=== PATIENT | female | born 1945 | race Caucasian/White ===

== ENCOUNTER 2018-11-30 11:43 | Outpatient (REF) | payer MEDICARE, BC, SELFPAY ==
[2018-11-30 21:32] LABS: TSH 0.08 uIU/mL (0.358-3.74)
== END 2018-11-30 12:03 ==
LOC: NCHCN 11:43
PROVIDERS: PCP Family Medicine; Visit Provider Family Medicine
DX: E03.9 Hypothyroidism, unspecified (principal)
CPT/HCPCS: 84443

== ENCOUNTER 2019-01-26 10:25 | Outpatient (REF) | payer MEDICARE, BC, SELFPAY ==
[2019-01-26 22:53] LABS: Abs Immature Grans 0.01 k/cumm (0.0-0.09); Absolute Basophil Count 0.02 k/cumm (0.0-0.2); Absolute Eosinophil Count 0.15 k/cumm (0.0-0.7); Absolute Lymphocyte Count 2.11 k/cumm (1.2-3.4); Absolute Neutrophil Count 2.52 k/cumm (1.2-6.7); Basophils % 0.4; Eosinophils % 2.8; HCT 38.3 % (36.0-46.0); HGB 12.7 g/dL (12.0-15.5); Immature Grans % 0.2; Lymphocytes % 39.7; Mean Corp. HGB Concentration 33.2 g/dL (32.0-36.0); Mean Corpuscular Hemoglobin 31.1 pg (27.0-33.0); Mean Corpuscular Volume 93.6 fL (80-95); Mean Platelet Volume 9.9 fL (8.0-11.0); Monocytes % 9.4; Neutrophils % 47.5; Platelet Count 246 x1000/uL (130-400); RBC 4.09 m/cumm (4.00-5.20); RBC Distribution Width 15.8 % (11.7-14.6); White Blood Cell Count 5.31 k/cumm (4.4-10.8)
[2019-01-26 23:11] LABS: Anion Gap 11.4 mmol/L (3-11); BUN 12 mg/dL (7-18); CO2 24.6 mmol/L (21.0-32.0); CREATININE 0.85 mg/dL (0.55-1.02); Calcium 8.6 mg/dL (8.5-10.1); Calculated LDL 150 mg/dL; Chloride 106 mmol/L (98-107); Cholesterol 249 mg/dL (50-200); Glucose 80 mg/dL (70-100); HDL Cholesterol 89 mg/dL (40-60); Potassium 4.1 mmol/L (3.5-5.1); Sodium 142 mmol/L (136-145); Triglyceride 50 mg/dL (30-150)
[2019-01-26 23:32] LABS: TSH (W/Ref FT4) 4.13 uIU/mL (0.36-3.74)
[2019-01-27] LABS: FREE T4 0.99 ng/dL (0.76-1.46)
== END 2019-01-26 10:45 ==
LOC: NCHCN 10:25
PROVIDERS: PCP Family Medicine; Visit Provider Family Medicine
DX: E03.9 Hypothyroidism, unspecified (principal); D72.819 Decreased white blood cell count, unspecified; Z13.6 Encounter for screening for cardiovascular disorders
CPT/HCPCS: 80048; 80061; 83721; 84439; 84443; 85025

== ENCOUNTER 2019-06-03 14:21 | Outpatient (REF) | payer MEDICARE, BC, SELFPAY ==
[2019-06-03 20:27] LABS: Abs Immature Grans 0.01 k/cumm (0.0-0.09); Absolute Basophil Count 0.02 k/cumm (0.0-0.2); Absolute Eosinophil Count 0.06 k/cumm (0.0-0.7); Absolute Lymphocyte Count 2.51 k/cumm (1.2-3.4); Absolute Neutrophil Count 3.37 k/cumm (1.2-6.7); Basophils % 0.3; Eosinophils % 0.9; HCT 39.3 % (36.0-46.0); HGB 13.2 g/dL (12.0-15.5); Immature Grans % 0.2; Lymphocytes % 38.2; Mean Corp. HGB Concentration 33.6 g/dL (32.0-36.0); Mean Corpuscular Hemoglobin 30.9 pg (27.0-33.0); Mean Platelet Volume 9.5 fL (8.0-11.0); Monocytes % 9.1; Neutrophils % 51.3; Platelet Count 292 x1000/uL (130-400); RBC 4.27 m/cumm (4.00-5.20); RBC Distribution Width 14.4 % (11.7-14.6); White Blood Cell Count 6.57 k/cumm (4.4-10.8)
[2019-06-03 20:35] LABS: ALT 19 U/L (14-59); AST 21 U/L (15-37); Albumin 4.1 g/dL (3.4-5.0); Alkaline Phosphatase 69 U/L (46-116); Anion Gap 11.2 mmol/L (3-11); BUN 7 mg/dL (7-18); Bilirubin, Total 0.8 mg/dL (0.2-1.0); CO2 26.8 mmol/L (21.0-32.0); CREATININE 0.94 mg/dL (0.55-1.02); Calcium 9.4 mg/dL (8.5-10.1); Chloride 104 mmol/L (98-107); Glucose 93 mg/dL (74-106); Lipase 86 U/L (73-393); Potassium 3.7 mmol/L (3.5-5.1); Sodium 142 mmol/L (136-145); Total Protein 7.8 g/dL (6.4-8.2)
== END 2019-06-03 14:41 ==
LOC: NCHCN 14:21
PROVIDERS: PCP Family Medicine; Visit Provider Family Medicine
DX: R10.9 Unspecified abdominal pain (principal)
CPT/HCPCS: 80053; 83690; 85025

== ENCOUNTER 2020-03-09 11:34 | Outpatient (REF) | payer MEDICARE, BC, SELFPAY ==
[2020-03-09 22:09] LABS: Anion Gap 5.9 mmol/L (3-11); BUN 15 mg/dL (7-18); CO2 27.1 mmol/L (21.0-32.0); CREATININE 0.85 mg/dL (0.55-1.02); Calcium 8.8 mg/dL (8.5-10.1); Calculated LDL 155 mg/dL (<100); Chloride 107 mmol/L (98-107); Cholesterol 254 mg/dL (<200); Glucose 88 mg/dL (74-106); HDL Cholesterol 85 mg/dL (40-60); Potassium 4.2 mmol/L (3.5-5.1); Sodium 140 mmol/L (136-145); TSH 0.42 uIU/mL (0.36-3.74); Triglyceride 71 mg/dL (<150)
== END 2020-03-09 11:54 ==
LOC: NCHCN 11:34
PROVIDERS: PCP Family Medicine; Visit Provider Family Medicine
DX: E03.9 Hypothyroidism, unspecified (principal); E78.5 Hyperlipidemia, unspecified
CPT/HCPCS: 80048; 80061; 84443

== ENCOUNTER 2020-06-05 10:58 | Outpatient (REF) | payer MEDICARE, BC, SELFPAY ==
[2020-06-05 22:26] LABS: ALT 15 U/L (14-59); AST 19 U/L (15-37); Albumin 4.1 g/dL (3.4-5.0); Alkaline Phosphatase 76 U/L (46-116); Bilirubin, Total 0.7 mg/dL (0.2-1.0); Calculated LDL 92 mg/dL (<100); Cholesterol 204 mg/dL (<200); HDL Cholesterol 98 mg/dL (40-60); Total Protein 7.7 g/dL (6.4-8.2); Triglyceride 70 mg/dL (<150)
[2020-06-05 22:58] LABS: Bilirubin, Direct 0.18 mg/dL (0.00-0.20)
== END 2020-06-05 11:18 ==
LOC: NCHCN 10:58
PROVIDERS: PCP Family Medicine; Visit Provider Family Medicine
DX: E78.5 Hyperlipidemia, unspecified (principal)
CPT/HCPCS: 80061; 80076

== ENCOUNTER 2021-03-12 14:49 | Outpatient (REF) | payer MEDICARE, BC, SELFPAY ==
[2021-03-12 17:00] LABS: ALT 22 U/L (14-59); AST 22 U/L (15-37); Alkaline Phosphatase 76 U/L (46-116); BUN 11 mg/dL (7-18); Bilirubin, Total 0.6 mg/dL (0.2-1.0); Calculated LDL 88 mg/dL (<100); Chloride 107 mmol/L (98-107); Cholesterol 188 mg/dL (<200); Estimated GFR 54.35 (mL/min/1.73m2); Glucose 84 mg/dL (74-106); HDL Cholesterol 89 mg/dL (40-60); Sodium 142 mmol/L (136-145); TSH 0.63 uIU/mL (0.36-3.74); Total Protein 7.3 g/dL (6.4-8.2); Triglyceride 58 mg/dL (<150)
== END 2021-03-12 14:50 | disposition home or self-care (01) ==
LOC: NCHCN 14:49
PROVIDERS: PCP Family Medicine; Visit Provider Family Medicine
DX: E03.9 Hypothyroidism, unspecified (principal); E78.5 Hyperlipidemia, unspecified; Z00.00 Encounter for general adult medical examination without abnormal findings
CPT/HCPCS: 80053; 80061; 84443

== ENCOUNTER 2022-06-06 12:48 | Outpatient (REF) | payer MEDICARE, SELFPAY ==
[2022-06-06 16:37] LABS: ALT 16 U/L (14-59); AST 27 U/L (15-37); Albumin 3.8 g/dL (3.4-5.0); Alkaline Phosphatase 76 U/L (46-116); Anion Gap 4.9 mmol/L (3-11); BUN 13 mg/dL (7-18); Bilirubin, Total 0.5 mg/dL (0.2-1.0); CO2 29.1 mmol/L (21.0-32.0); CREATININE 0.9 mg/dL (0.55-1.02); Calcium 8.9 mg/dL (8.5-10.1); Calculated LDL 106 mg/dL (<100); Chloride 107 mmol/L (98-107); Cholesterol 219 mg/dL (<200); Estimated GFR 67.08 (mL/min/1.73m2); Glucose 93 mg/dL (74-106); HDL Cholesterol 103 mg/dL (40-60); Potassium 4.1 mmol/L (3.5-5.1); Sodium 141 mmol/L (136-145); TSH (W/Ref FT4) 0.89 uIU/mL (0.36-3.74); Total Protein 7.6 g/dL (6.4-8.2); Triglyceride 53 mg/dL (<150)
== END 2022-06-06 12:49 | disposition home or self-care (01) ==
LOC: NCHCN 12:48
PROVIDERS: PCP Family Medicine; Visit Provider Family Medicine
DX: E78.5 Hyperlipidemia, unspecified (principal); E03.9 Hypothyroidism, unspecified; Z00.00 Encounter for general adult medical examination without abnormal findings
CPT/HCPCS: 80053; 80061; 84443

== ENCOUNTER 2023-07-07 17:29 | Outpatient (REF) | payer MEDICARE, BC, SELFPAY ==
[2023-07-07 15:41] LABS: ALT 16 U/L (14-59); AST 21 U/L (15-37); Albumin 3.7 g/dL (3.4-5.0); Alkaline Phosphatase 70 U/L (46-116); Anion Gap 7.7 mmol/L (3-11); BUN 17 mg/dL (7-18); Bilirubin, Total 0.7 mg/dL (0.2-1.0); CO2 26.3 mmol/L (21.0-32.0); Calculated LDL 123 mg/dL (<100); Chloride 106 mmol/L (98-107); Cholesterol 234 mg/dL (<200); Estimated GFR 58.75 (mL/min/1.73m2); Glucose 97 mg/dL (74-106); HDL Cholesterol 97 mg/dL (40-60); Potassium 3.9 mmol/L (3.5-5.1); Sodium 140 mmol/L (136-145); TSH 2.74 uIU/mL (0.36-3.74); Total Protein 7.7 g/dL (6.4-8.2); Triglyceride 74 mg/dL (<150)
== END 2023-07-07 17:30 | disposition home or self-care (01) ==
LOC: NCHCN 17:29
PROVIDERS: PCP Family Medicine; Visit Provider Family Medicine
DX: E03.9 Hypothyroidism, unspecified (principal)
CPT/HCPCS: 80053; 80061; 84443

== ENCOUNTER 2024-07-08 11:10 | Outpatient (REF) | payer MEDICARE, BC, SELFPAY ==
[2024-07-08 15:14] LABS: ALT 16 U/L (14-59); AST 22 U/L (15-37); Albumin 3.9 g/dL (3.4-5.0); Alkaline Phosphatase 94 U/L (46-116); Anion Gap 7.1 mmol/L (3-11); BUN 14 mg/dL (7-18); Bilirubin, Total 0.61 mg/dL (0.2-1.0); CO2 27.9 mmol/L (21.0-32.0); CREATININE 1.1 mg/dL (0.55-1.02); Calcium 9.6 mg/dL (8.5-10.1); Calculated LDL 122 mg/dL (<100); Chloride 106 mmol/L (98-107); Cholesterol 238 mg/dL (<200); Estimated GFR 52.08 (mL/min/1.73m2); Glucose 94 mg/dL (74-106); HDL Cholesterol 102 mg/dL (40-60); Sodium 141 mmol/L (136-145); Total Protein 8.1 g/dL (6.4-8.2); Triglyceride 70 mg/dL (<150)
[2024-07-08 16:17] LABS: TSH 1.92 uIU/mL (0.36-3.74)
== END 2024-07-08 11:11 | disposition home or self-care (01) ==
LOC: NCHCN 11:10
PROVIDERS: PCP Family Medicine; Visit Provider Family Medicine
DX: E03.9 Hypothyroidism, unspecified (principal)
CPT/HCPCS: 80053; 80061; 84443